=== PATIENT | female | born 1975 | race Caucasian/White ===

== ENCOUNTER 2018-01-31 01:12 | Emergency (ER) | payer MEDICAID ==
[~2018-01-31] VITALS: Ht 157.5 cm; Wt 81.6 kg
[2018-01-31 01:22] VITALS: Ht 157.5 cm; Wt 81.6 kg
[2018-01-31 06:28] VITALS: BP 121/76
== END 2018-01-31 06:28 | disposition home or self-care (01) ==
LOC: ED 01:12
DX: N39.0 Urinary tract infection, site not specified (principal); I10 Essential (primary) hypertension